=== PATIENT | female | born 1990 | race Caucasian/White ===

== ENCOUNTER 2018-09-17 13:49 | Outpatient (CLI) | payer OTHER ==
--- NOTE | 2018-09-17 16:01 | ULT ---
OB ULTRASOUND: 09/17/18 HISTORY: High risk. anomaly evaluation. A single live intrauterine gestation is seen with measurements corresponding to an estimated gestatio nal age of 24 weeks, 5 days and VANESSA at [birth year]. The estimated weight measures 761 grams or 1 lb and 11 oz. This corresponds to 61 percentile by Hadlock criteria. measurements are as follows: BPD 5.83 cm 24 weeks, 0 days HC 21.98 cm 24 weeks, 1 day AC 20.62 cm 25 weeks, 2 days FL 4.59 cm 25 weeks, 2 days heart rate measures 146 beats per minute. Placenta is anteriorly located without evidence of p lacenta previa. BIANCA measures 22.3 cm. A three vessel cord, cord insertion, kidneys, bladder, st omach, four chamber heart, lateral ventricles, cerebellum, spine, lips/nose, upper and lower extremit ies are visualized. No definite anomalies are seen. IMPRESSION: Single live IUP of 24 weeks, 5 days estimated gestational age and VANESSA at [birth year]. 1. POS: YUDI
== END 2018-09-17 13:50 | disposition home or self-care (01) ==
LOC: BICULT 13:49
PROVIDERS: ATTEND Family Medicine
DX: O09.92 Supervision of high risk pregnancy, unspecified, second trimester (principal)
CPT/HCPCS: 76805

== ENCOUNTER 2018-12-30 03:06 | Inpatient (IN) | payer OTHER ==
[2018-12-30 03:44] VITALS: BMI 34.1
[2018-12-30] MEDS ORDERED: Promethazine HCl 25 MG/ML VIAL IM PRN ×3 (04:15→19:19)
[2018-12-30] MEDS ORDERED: Ondansetron PF 4 MG/2 ML Vial IVP PRN ×3 (04:15→19:19)
[2018-12-30] MEDS ORDERED: hydrALAZINE 20 MG/ML VIAL SLOW IVP PRN ×2 (04:15→19:19)
[2018-12-30] MEDS ORDERED: CEFAZOLIN 2 GM in Premix Bag 1 BAG IVPB SCH (04:30)
[2018-12-30] MEDS ORDERED: Bicitra 30 ML UDCUP PO SCH (04:30)
[2018-12-30 04:32] LABS: Hemoglobin 12.1 g/dL (12.0-16.0); Mean Corpuscular HGB CONC 34.7 g/dL (32.0-36.0); Mean Corpuscular Hemoglobin 29.4 pg (27.0-31.0); Mean Corpuscular Volume 84.9 fL (78.0-98.0); Mean Platelet Volume 9.9 fL (7.4-10.4); Platelet Count 180 thou/uL (130-400); RBC Distribution Width 14.6 % (11.5-14.5); Red Blood Cell (RBC) Count 4.11 mill/uL (4.20-5.40)
[2018-12-30] MEDS: Lactated Ringer's 1,000 ML IV SCH ×3 (04:37→14:48)
[2018-12-30] MEDS ORDERED: Penicillin G Potassium 5 MILL.UNITS VIAL ONE (04:56)
[2018-12-30] MEDS ORDERED: Penicillin G Potassium 5 MILL.UNITS in Sodium Chloride 0.9% 100 ML IVPB SCH (05:00)
[2018-12-30 05:11] LABS: Syphilis Antibody Nonreactive (Nonreactive); Syphilis Antibody Index 0.04 S/CO (<1.00 Non-Reactive)
[2018-12-30 05:12] LABS: HBSAg Index 0.15 S/CO (0-0.99); Hep B Surf Ag Non-Reactive S/CO (NonReactive)
[2018-12-30] MEDS ORDERED: Fentanyl 4 mcg/Bup 0.1% Cadd 100 ML ONE ×2 (07:08→16:29)
[2018-12-30] MEDS: Penicillin G 2.5 MILL.units 50 ML IVPB SCH ×3 (09:04→17:00)
[2018-12-30] MEDS ORDERED: Lidocaine 1.5%/Epinephrine 1:200,000 5 ML AMPUL IJ ONE (09:19)
[2018-12-30] MEDS ORDERED: Bupivacaine/Epinephrine 0.25% 30 ML VIAL ONE (11:11)
[2018-12-30] MEDS ORDERED: Diphenoxylate HCl/Atropine Tablet PO PRN (12:30)
[2018-12-30] MEDS ORDERED: HYDROcodone/Acetaminophen 5/325 mg Tablet PO PRN ×2 (12:30→19:19)
[2018-12-30] MEDS ORDERED: NS / Oxytocin 40 units/1000ml 1,000 ML IV PRN (12:30)
[2018-12-30] MEDS ORDERED: Lidocaine 1% (PF) 30 ML VIAL SC PRN (12:30)
[2018-12-30] MEDS ORDERED: Methylergonovine 0.2 MG/ML VIAL IM PRN (12:30)
[2018-12-30] MEDS ORDERED: Ibuprofen 800 MG TAB PO PRN (12:30)
[2018-12-30] MEDS ORDERED: Misoprostol 200 MCG TAB PR PRN (12:30)
[2018-12-30] MEDS ORDERED: Carboprost 250 MCG/ML AMP IM PRN (12:30)
[2018-12-30] MEDS ORDERED: NS w/ Oxytocin 10 units 500 ML IV SCH ×2 (12:30)
[2018-12-30] MEDS ORDERED: diphenhydrAMINE 50 MG/ML VIAL IVP PRN (12:55)
[2018-12-30] MEDS ORDERED: ePHEDrine/0.9% NaCl/PF SYRINGE 50 mg/10 ml SLOW IVP PRN (12:55)
[2018-12-30] MEDS ORDERED: Lactated Ringer's 500 ML IV PRN (12:55)
[2018-12-30] MEDS ORDERED: Acetaminophen 325 MG TAB PO PRN (12:55)
[2018-12-30] MEDS ORDERED: Naloxone HCl 0.4 mg/ml Vial IVP PRN ×2 (12:55)
[2018-12-30] MEDS ORDERED: Fentanyl 4 mcg/Bupivacaine 0.1% Cassette 100 ML EPIDURAL SCH (13:00)
[2018-12-30] MEDS ORDERED: Communication Order-Pharmacy FS SCH (13:00)
[2018-12-30] MEDS ORDERED: cloNIDine 0.1 MG TAB PO PRN (18:16)
[2018-12-30] MEDS ORDERED: Bisacodyl 10 MG SUPP PR PRN (19:19)
[2018-12-30] MEDS ORDERED: NS / Oxytocin 40 units/1000ml 1,000 ML IV SCH (19:19)
[2018-12-30] MEDS ORDERED: Benzocaine-Menthol 82.5 ML CAN TOP PRN (19:19)
[2018-12-30] MEDS ORDERED: Lanolin Ointment 7 GM TUBE TOP PRN (19:19)
[2018-12-30] MEDS ORDERED: diphenhydrAMINE 25 MG CAP PO PRN (19:19)
[2018-12-30] MEDS ORDERED: Milk Of Magnesia 30 ML UDCUP PO PRN (19:19)
[2018-12-30] MEDS: Docusate Calcium (SURFAK) 240 MG CAP PO SCH (21:34)
[2018-12-30] MEDS: Ibuprofen 800 MG TAB PO SCH (21:34)
[2018-12-30] MEDS: HYDROcodone/Acetaminophen 5/325 mg Tablet PO PRN (23:38)
[2018-12-31] MEDS: Ibuprofen 800 MG TAB PO SCH ×3 (05:15→21:26)
[2018-12-31 06:05] LABS: Hemoglobin 9.8 g/dL (12.0-16.0); Mean Corpuscular HGB CONC 34.1 g/dL (32.0-36.0); Mean Corpuscular Hemoglobin 29.4 pg (27.0-31.0); Mean Platelet Volume 9.6 fL (7.4-10.4); Platelet Count 162 thou/uL (130-400); RBC Distribution Width 14.7 % (11.5-14.5); Red Blood Cell (RBC) Count 3.35 mill/uL (4.20-5.40); White Blood Cell (WBC) Count 11.9 thou/uL (4.8-10.8)
[2018-12-31] MEDS ORDERED: Adacel (T-DAP) 0.5 ML SYRINGE IM ONE (09:00)
[2018-12-31] MEDS: Prenatal Vitamin 1 TAB PO SCH (09:38)
[2018-12-31] MEDS: Ferrous Sulfate 325 MG TAB PO SCH ×2 (09:38→21:25)
[2018-12-31] MEDS: Docusate Calcium (SURFAK) 240 MG CAP PO SCH ×2 (09:39→21:25)
[2018-12-31] MEDS: HYDROcodone/Acetaminophen 5/325 mg Tablet PO PRN (09:39)
[2018-12-31] MEDS ORDERED: Sodium Chloride 0.9% 10 ML ONE (14:01)
[2019-01-01] MEDS: Ibuprofen 800 MG TAB PO SCH (05:06)
[2019-01-01] MEDS: Prenatal Vitamin 1 TAB PO SCH (09:09)
[2019-01-01] MEDS: Docusate Calcium (SURFAK) 240 MG CAP PO SCH (09:09)
[2019-01-01] MEDS: Ferrous Sulfate 325 MG TAB PO SCH (09:09)
[2019-01-01 10:47] VITALS: BP 124/72; TEMP 98
== END 2019-01-01 13:15 | disposition home or self-care (01) | DRG 807 ==
LOC: L&D 03:06 → 3SW 20:26
PROVIDERS: ADMIT Family Medicine; ATTEND Family Medicine
PROC: 10E0XZZ Delivery of Products of Conception, External Approach (ICD-10-PCS; principal; 2018-12-30)
PROC: 10H07YZ Insertion of Other Device into Products of Conception, Via Natural or Artificial Opening (ICD-10-PCS; 2018-12-30)
PROC: 0HQ9XZZ Repair Perineum Skin, External Approach (ICD-10-PCS; 2018-12-30)
PROC: 0UQMXZZ Repair Vulva, External Approach (ICD-10-PCS; 2018-12-30)
PROC: 10907ZC Drainage of Amniotic Fluid, Therapeutic from Products of Conception, Via Natural or Artificial Opening (ICD-10-PCS; 2018-12-30)
DX: O34.219 Maternal care for unspecified type scar from previous cesarean delivery (principal); Z37.0 Single live birth; N85.8 Other specified noninflammatory disorders of uterus; Z3A.39 39 weeks gestation of pregnancy; O99.824 Streptococcus B carrier state complicating childbirth; O70.0 First degree perineal laceration during delivery; O71.82 Other specified trauma to perineum and vulva
CPT/HCPCS: 36415; 85027; 86780; 86850; 86900; 86901; 87340; J0360; J2001; J2405; J2540; J2590; J3490